=== PATIENT | female | born 1975 | race Caucasian/White ===

== ENCOUNTER 2018-07-07 21:00 | Emergency (ER) | payer BC, SELFPAY ==
[2018-07-07 21:01] VITALS: BP 125/80; PULSE 68; RESP 18; TEMP 37; O2SAT 100; BMI 25.0
[2018-07-07 21:26] LABS: Color, Urine Yellow (Yellow); Glucose, Dipstick Normal (Normal); Ketone-Dipstick Negative (Negative); Leukocyte Esterase-Dipstick Negative /ul (Negative); Nitrite-Dipstick Negative (Negative); Occult Blood-Urine 10 /ul (Negative); Protein-Dipstick 15 mg/dl (Negative); Specific Gravity, Urine 1.025 (1.002-1.030); Urine Bilirubin Dipstick Negative (Negative); Urine Clarity Cloudy (Clear); Urine Urobilinogen Normal (Normal)
[2018-07-07 21:45] LABS: Mucous, Urine 4+ /hpf (<or=2+)
[2018-07-07 21:46] LABS: Bacteria 1+ /hpf (None Seen)
[2018-07-07 21:47] LABS: Red Blood Cells-Urine 0-5 SEEN /hpf (0-5); Squamous Epithelial Cells - UA 5-10 SEEN /hpf (5-10); White Blood Cells 0-5 SEEN /hpf (0-5)
--- NOTE | 2018-07-07 21:50 | ED.DCSUM_ITS ---
- ER Visit Summary Date of Service: 07/07/18 Chief Complaint: [] Right flank pain on and off for months he saw urologist yesterday History of Present Illness: The patient is a 42 F [] that history was seen yesterday by urologist scheduled for CT flank but that cannot be done to late July she had persistent pain treatment for evaluation no nausea vomiting fever, urine and bowel habits have been normal denies she had a uterine ablation denies any other complaints or history of significance Physical Examination: [] Vital signs are within normal range she is no distress head neck chest unremarkable she is very mild to moderate right flank pain abdomen soft nontender head neck chest abdomen upper lower extremities was unremarkable clinically she is resting in the bed Test Results: [] Emergency Department Course and Treatment: [] Given that history screening labs CT flank UA etc. 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 It may contain incorrect words, spelling, and punctuation that were not noted in review of the chart prior to signing ED Disposition - Plan for ED Patient: Chief Complaint: Flank Pain Referrals: NOT,DEFINED [NON-STAFF] -
[2018-07-07 21:51] LABS: Absolute Lymphocyte Count 2.35 X10^3/ul (0.83-4.51); Absolute Neutrophil Count 4.4 X10^3/uL (2.0-7.7); Basophil# 0.02 X10^3/uL; Basophil% 0.3 % (0-1); Eosinophil# 0.05 X10^3/uL; Eosinophils% 0.7 % (0-5); Hematocrit 36.7 % (37-47); Hemoglobin 11.9 g/dl (12.0-15.0); Lymphocyte # 2.35 X10^3/ul (4.0); Lymphocyte % 31.9 % (19-41); Mean Corp Hgb Conc 32.4 g/gl (32-36); Mean Corpuscular Hgb 29.5 pg (27.0-32.0); Mean Corpuscular Volume 91.1 fL (81-99); Mean Platelet Vol. 11.9 fl (6.2-12.0); Monocyte# 0.51 X10^3/uL; Monocyte% 6.9 % (0-10); Neutrophil # 4.41 X10^3/uL (2.7-7.7); Neutrophil % 59.9 % (47-70); Platelet Count 183 K/mm3 (150-450); RBC Distribution Width CV 13.5 % (11.6-14.6); RBC Distribution Width SD 44.4 fl (35.1-43.9); Red Blood Count 4.03 M/mm3 (4.2-5.4); White Blood Count 7.4 K/mm3 (4.4-11.0)
[2018-07-07 21:54] LABS: POSITIVE COUNT NO; POSITIVE DIFFERENTIAL NO; POSITIVE MORPHOLOGY NO
[2018-07-07 22:04] LABS: Anion Gap 6 (5-15); BUN 16 mg/dL (7-18); BUN/Creat Ratio 18.6 RATIO (10-20); Calcium,Total 8.3 mg/dL (8.5-10.1); Chloride 107 mmol/L (98-107); Creatinine, Serum 0.86 mg/dL (0.55-1.02); EST Glomerular Filtration Rate 77 mL/min (>60); Est Glom Filt Rate - Afr Amer 94 mL/min (>60); Estimated Creatinine Clearance 75.09 ml/min; Glucose 87 mg/dL (74-106); Potassium 3.8 mmol/L (3.5-5.1); Sodium Level 141 mmol/L (136-145)
--- NOTE | 2018-07-07 22:44 | ED.DEP ---
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
--- NOTE | 2018-07-07 22:47 | ED.DEP ---
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
[2018-07-07 22:59] VITALS: BP 118/78; PULSE 70; RESP 18; O2SAT 99
== END 2018-07-07 23:01 | disposition home or self-care (01) ==
LOC: ED 21:56
PROVIDERS: Emergency Provider Emergency Medicine
DX: R10.9 Unspecified abdominal pain (principal)
CPT/HCPCS: 74176; 80048; 81001; 85025; 99282